=== PATIENT | male | born 1985 | race Caucasian/White ===

== ENCOUNTER 2018-04-24 15:15 | Emergency (ER) | payer SELFPAY ==
[2018-04-24] MEDS ORDERED: CEPHALEXIN 500 MG CAPSULE PO ONE (15:38)
[2018-04-24] MEDS ORDERED: IBUPROFEN 800 MG TABLET PO ONE (15:38)
--- NOTE | 2018-04-24 15:40 | ER Document Report ---
HPI - HPI Patient complains to provider of: Ankle injury Time Seen by Provider: 04/24/18 15:32 Onset: Yesterday Onset/Duration: Sudden Quality of pain: Achy Pain Level: 4 Context: Patient states he was at a trampoline park yesterday and was doing flips and felt a sudden pop in his right ankle. Patient complains of right ankle pain and swelling. Patient also reports having an wound to the right leg from his boots rubbing on his leg. Patient states he has been treating the injury with daily peroxide cleansing and applying triple antibiotic ointment. Patient denies any fever. Associated Symptoms: Other - Right ankle pain, right leg wound. denies: Fever Exacerbated by: Standing, Walking Relieved by: Denies Similar symptoms previously: No Recently seen / treated by doctor: No - ROS ROS below otherwise negative: Yes Systems Reviewed and Negative: Yes All other systems reviewed and negative - CONSTITUTIONAL Constitutional: DENIES: Fever, Chills - EENT EENT: DENIES: Sore Throat - GASTROINTESTINAL Gastrointestinal: DENIES: Abdominal Pain, Nausea, Patient vomiting - MUSCULOSKELETAL Musculoskeletal: REPORTS: Extremity pain - right ankle, Swelling - DERM Skin Color: Ecchymosis Notes: Crusted wound to right leg Past Medical History - General Information source: Patient - Social History Smoking Status: Never Smoker Chew tobacco use (# tins/day): No Smoking Education Provided: Yes Frequency of alcohol use: None Drug Abuse: None Occupation: [employer] Lives with: Family Family History: Reviewed & Not Pertinent Patient has suicidal ideation: No Patient has homicidal ideation: No - Medical History Medical History: Negative Renal/ Medical History: Denies: Hx Peritoneal Dialysis Past Surgical History: Reports: Hx Orthopedic Surgery - hand, elbow from eltrocution - Immunizations Hx Diphtheria, Pertussis, Tetanus Vaccination: Yes Vertical Provider Document - CONSTITUTIONAL Agree With Documented VS: Yes Exam Limitations: No Limitations General Appearance: WD/WN, No Apparent Distress - INFECTION CONTROL TRAVEL OUTSIDE OF THE [place]. IN LAST 30 DAYS: No - HEENT HEENT: Atraumatic, Normocephalic - NECK Neck: Normal Inspection - RESPIRATORY Respiratory: No Respiratory Distress - CARDIOVASCULAR Pulses: Normal: Dorsalis pedis - MUSCULOSKELETAL/EXTREMETIES Musculoskeletal/Extremeties: MAEW, Tender - Tenderness to right ankle bilateral malleolar area with 3+ edema and ecchymosis. Patient with right medial midfoot tenderness - NEURO Level of Consciousness: Awake, Alert, Appropriate Motor/Sensory: No Motor Deficit - DERM Integumentary: Warm, Dry Notes: Patient with scabbed lesion to right lower leg with minimal surrounding erythema. Course - Re-evaluation Re-evalutation: 04/24/18 16:49 Dr. Gil to bedside for consultation. Recommends obtaining CT scan and consulting with orthopedics. Suspects likely discharge home. 04/24/18 18:[address] Larios regarding patient CT report findings. Recommends outpatient follow-up with Dr. Murillo. - Vital Signs Vital signs: Temp Pulse Resp BP Pulse Ox 99.1 F 85 16 156/83 H 100 04/24/18 15:28 04/24/18 15:28 04/24/18 15:28 04/24/18 15:28 04/24/18 15:28 - Diagnostic Test Radiology reviewed: Image reviewed, Reports reviewed Discharge - Discharge Clinical Impression: Fracture, talus closed Qualifiers: Encounter type: initial encounter Talus location: unspecified portion of talus Fracture alignment: displaced Laterality: right Qualified Code(s): S92.101A - Unspecified fracture of right talus, initial encounter for closed fracture Leg wound, right Qualifiers: Encounter type: initial encounter Qualified Code(s): S81.801A - Unspecified open wound, right lower leg, initial encounter Condition: Stable Disposition: HOME, SELF-CARE Instructions: Cephalexin ([facility]), Use of Crutches ([facility]), Fracture ([facility]), Ice & Elevation ([facility]), Oral Narcotic Medication ([facility]), Splint Precautions ([facility]) Additional Instructions: Return immediately for any new or worsening symptoms Followup with Dr. Murillo, call their office tomorrow to make a follow-up appointment Prescriptions: Cephalexin Monohydrate [Keflex 500 mg Capsule] 500 mg PO Q6H 5 Days capsule Hydrocodone/Acetaminophen [[place] 5-325 mg Tablet] 1 tab PO Q6 PRN #15 tablet PRN Reason: Naproxen [Naprosyn 250 Nmg Tablet] 1 tab PO BID #14 tablet Forms: Smoking Cessation Education, Return to Work Referrals: ISIDRO MURILLO MD [ACTIVE STAFF] - Follow up tomorrow
--- NOTE | 2018-04-24 16:53 | RADIOLOGY REPORT (SQ) ---
EXAM DESCRIPTION: ANKLE RIGHT COMPLETE; FOOT RIGHT COMPLETE COMPLETED DATE/TIME: 04/24/2018 4:36 pm REASON FOR STUDY: Injured R ankle on trampoline. Swollen+ Pain+; trampoline park injury COMPARISON: None. NUMBER OF VIEWS: Six views. TECHNIQUE: AP, lateral, and oblique radiographic images acquired of the right foot and right ankle. LIMITATIONS: None. FINDINGS: MINERALIZATION: Normal. BONES: Well corticated calcified density distal to the lateral malleolus stool with remote trauma. N o acute fracture or dislocation. No worrisome bone lesions. JOINTS: Intact. SOFT TISSUES: Diffuse swelling. No foreign body. OTHER: No other significant finding. IMPRESSION: Soft tissue injury. No fracture. TECHNICAL DOCUMENTATION: JOB ID: [id number] [employer]- All Rights Reserved Reading location - IP/workstation name: [email or web address]
--- NOTE | 2018-04-24 16:53 | RADIOLOGY REPORT (SQ) ---
EXAM DESCRIPTION: ANKLE RIGHT COMPLETE; FOOT RIGHT COMPLETE COMPLETED DATE/TIME: 04/24/2018 4:36 pm REASON FOR STUDY: Injured R ankle on trampoline. Swollen+ Pain+; trampoline park injury COMPARISON: None. NUMBER OF VIEWS: Six views. TECHNIQUE: AP, lateral, and oblique radiographic images acquired of the right foot and right ankle. LIMITATIONS: None. FINDINGS: MINERALIZATION: Normal. BONES: Well corticated calcified density distal to the lateral malleolus stool with remote trauma. N o acute fracture or dislocation. No worrisome bone lesions. JOINTS: Intact. SOFT TISSUES: Diffuse swelling. No foreign body. OTHER: No other significant finding. IMPRESSION: Soft tissue injury. No fracture. TECHNICAL DOCUMENTATION: JOB ID: [id number] [employer]- All Rights Reserved Reading location - IP/workstation name: [email or web address]
--- NOTE | 2018-04-24 17:47 | RADIOLOGY REPORT (SQ) ---
EXAM DESCRIPTION: CT RT LOWER EXTREMITY WITHOUT COMPLETED DATE/TIME: 04/24/2018 5:25 pm REASON FOR STUDY: eval talus fracture COMPARISON: None. TECHNIQUE: Axial imaging performed through the right ankle with reformatted coronal and sagittal eyal ging windowed for bone and soft tissues. Images saved to PACS. 3D IMAGING: Were 3D images as MIP, SSD, or volume rendering performed at the work station? No All CT scanners at this facility use dose modulation, iterative reconstruction, and/or weight based d osing when appropriate to reduce radiation dose to as low as reasonably achievable (ALARA). [facility]: Dose Right [facility]: CareDose [facility]: Dose Right [facility]: Teradose 4D [facility]: [employer] LIMITATIONS: None. RADIATION DOSE: CT Rad equipment meets quality standard of care and radiation dose reduction techniq ues were employed. CTDIvol: 4.1 mGy. DLP: 98 mGy-cm. mGy. FINDINGS: SOFT TISSUES: Subcutaneous edema is present. BONES: There is a limited fracture of the lateral process of the talus. This partially involves the posterior facet. MINERALIZATION: Normal. OTHER: No other significant finding. IMPRESSION: Fracture of the lateral process of the talus. 3D images can be created for viewing. TECHNICAL DOCUMENTATION: JOB ID: [id number] Quality ID # [id number]: Final reports with documentation of one or more dose reduction techniques (e.g., Au tomated exposure control, adjustment of the mA and/or kV according to patient size, use of iterative reconstruction technique) 2010 [employer]- All Rights Reserved Reading location - IP/workstation name: [email or web address]
[2018-04-24 18:00] VITALS: BP 153/95
== END 2018-04-24 18:43 | disposition home or self-care (01) ==
LOC: ER 15:15
DX: S92.101A Unspecified fracture of right talus, initial encounter for closed fracture (principal); S81.801A Unspecified open wound, right lower leg, initial encounter; X58.XXXA Exposure to other specified factors, initial encounter; Y92.009 Unspecified place in unspecified non-institutional (private) residence as the place of occurrence of the external cause
CPT/HCPCS: 99284

== ENCOUNTER 2019-11-14 13:24 | Emergency (ER) | payer SELFPAY ==
[2019-11-14 15:10] LABS: APPEARANCE,URINE SLIGHTLY-CLOUDY; BILIRUBIN,URINE NEGATIVE (NEGATIVE); COLOR,URINE AMBER; GLUCOSE, URINE NEGATIVE (NEGATIVE); KETONES,URINE TRACE mg/dL (NEGATIVE); LEUKOCYTE ESTERASE,URINE NEGATIVE (NEGATIVE); NITRITE,URINE NEGATIVE (NEGATIVE); PROTEIN,URINE 100 mg/dL (NEGATIVE); URINE SPECIFIC GRAVITY 1.027
--- NOTE | 2019-11-14 15:19 | ER Document Report ---
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 He was discharged from [facility] approximately a month and a half ago and had 2 drains placed. He had a follow-up approximately 4 weeks ago with his provider Dr. Melchor who removed 1 of the tubes. He has an appointment next Tuesday with Dr. Melchor in regards to removing the second tube. Patient notes this morning the tube was very loose and that the suture had popped and that his drain is no longer actively draining. Typically has drainage of approximately 50 mL's a day that is of a yellowish discharge. He has left-sided pain. No fevers chills or additional symptoms reported. Physical exam: No acute distress. Drain left lateral abdominal wall. Mild surrounding erythema. Area is tender. Mild yellowish discharge. I have greeted and performed a rapid initial assessment of this patient. A comprehesive ED assessment and evaluation of this patient, analysis of test results and completion of the medical decision-making process will be conducted by additional ED providers. TRAVEL OUTSIDE OF THE [place].S[place] IN LAST 30 DAYS: No - Related Data Allergies/Adverse Reactions: sulfamethoxazole [From ] Allergy (Verified 11/14/19 15:01) trimethoprim [From Octra] Allergy (Verified 11/14/19 15:01) Home Medications: creon Past Medical History - Social History Chew tobacco use (# tins/day): No Frequency of alcohol use: None Drug Abuse: None Renal/ Medical History: Denies: Hx Peritoneal Dialysis Psychiatric Medical History: Denies: Hx Depression Past Surgical History: Reports: Hx Orthopedic Surgery - hand, elbow from eltrocution - Immunizations Hx Diphtheria, Pertussis, Tetanus Vaccination: Yes Physical Exam - Vital signs Vitals: Temp Pulse Resp BP Pulse Ox 99.3 F 126 H 17 101/59 L 98 11/14/19 13:41 11/14/19 13:41 11/14/19 13:41 11/14/19 13:41 11/14/19 13:41 Course - Re-evaluation Re-evalutation: 11/14/19 16:[address] Melchor at [place]. He recommends a CT to evaluate for the necrosis and a call back after this is performed to give additional recommendations. I have ordered the CT scan. Patient is pending a room in the main ER. - Vital Signs Vital signs: Temp Pulse Resp BP Pulse Ox 99.3 F 118 H 16 119/70 100 11/14/19 13:41 11/14/19 15:46 11/14/19 15:46 11/14/19 15:46 11/14/19 15:46 - Laboratory Laboratory results interpreted by me: 11/14/19 14:30 Urine Protein 100 H Urine Ketones TRACE H Urine Urobilinogen 2.0 H Urine Ascorbic Acid 20 H
[2019-11-14 16:33] LABS: CHLAM PCR NOT DETECTED (NOT DETECT)
[2019-11-14 19:01] LABS: ABSOLUTE BASOPHILS # (AUTO) 0.1 10^3/uL (0.0-0.2); ABSOLUTE MONOCYTES (AUTO) 2.1 10^3/uL (0.1-1.4); ABSOLUTE NEUT (AUTO) 15.5 10^3/uL (1.7-8.2); BASOPHILS % (AUTO) 0.7 % (0-2); EOSINOPHILS % (AUTO) 0.1 % (0-6); HEMATOCRIT 31.7 % (37.9-51.0); HEMOGLOBIN 11.1 g/dL (13.5-17.0); MEAN CORPUSCULAR HEMOGLOBIN 31.7 pg (27.0-33.4); MEAN CORPUSCULAR VOLUME 91 fl (80-97); MONOCYTES % (AUTO) 10.7 % (3-13); PLATELET COUNT 445 10^3/uL (150-450); RED BLOOD COUNT 3.49 10^6/uL (4.35-5.55); RED CELL DISTRIBUTION WIDTH 15.2 % (11.5-14.0); SEGMENTED NEUTROPHILS % (AUTO) 78.5 % (42-78); TOTAL CELLS COUNTED % (AUTO) 100 %; WHITE BLOOD COUNT 19.7 10^3/uL (4.0-10.5)
[2019-11-14 19:11] LABS: ALBUMIN 4.1 g/dL (3.5-5.0); ALKALINE PHOSPHATASE 116 U/L (38-126); ANION GAP 14 (5-19); ASPARTATE AMINO TRANSFERASE 29 U/L (17-59); BILIRUBIN,DIRECT 0.4 mg/dL (0.0-0.4); BILIRUBIN,TOTAL 0.9 mg/dL (0.2-1.3); BLOOD UREA NITROGEN 9 mg/dL (7-20); CALCIUM 9.8 mg/dL (8.4-10.2); CARBON DIOXIDE 25 mmol/L (22-30); CHLORIDE 91 mmol/L (98-107); GLUCOSE 166 mg/dL (75-110); POTASSIUM 4.8 mmol/L (3.6-5.0); TOTAL PROTEIN 8.6 g/dL (6.3-8.2)
--- NOTE | 2019-11-14 19:13 | RADIOLOGY REPORT (SQ) ---
EXAM DESCRIPTION: CT ABD/PELVIS WITH IV ONLY IMAGES COMPLETED DATE/TIME: 11/14/2019 6:55 pm REASON FOR STUDY: follow up pancreatitis COMPARISON: 09/18/2019 TECHNIQUE: CT scan of the abdomen and pelvis performed using helical scanning technique with dynamic intravenous contrast injection. No oral contrast. Images reviewed with lung, soft tissue, and bone windows. Reconstructed coronal and sagittal MPR images reviewed. Delayed images for evaluation of the urinary system also acquired. All images stored on PACS. All CT scanners at this facility use dose modulation, iterative reconstruction, and/or weight based d osing when appropriate to reduce radiation dose to as low as reasonably achievable (ALARA). [facility]: Dose Right [facility]: CareDose [facility]: Dose Right [facility]: Teradose 4D [facility]: [employer] CONTRAST TYPE AND DOSE: contrast/concentration: Isovue 350.00 mmol/ml; Total Contrast Delivered: 75. 0 ml; Total Saline Delivered: 56.0 ml RENAL FUNCTION: None required. The patient is less than 50 years old. RADIATION DOSE: CT Rad equipment meets quality standard of care and radiation dose reduction techniq ues were employed. CTDIvol: 6.4 - 8.7 mGy. DLP: 810 mGy-cm.. LIMITATIONS: None. FINDINGS: LOWER CHEST: No significant findings. No nodules or infiltrates. LIVER: Normal size. No masses. No dilated ducts. SPLEEN: Normal size. No focal lesions. PANCREAS: Gas fluid collections within enlarged gland with adjacent inflammatory changes. Fluid salvatore ection measures approximately 2.8 x 8 cm AP by transverse diameter. There is a percutaneous drain ne ar the tail. No pseudoaneurysm. GALLBLADDER: Gallstones. No inflammatory changes to suggest cholecystitis. ADRENAL GLANDS: No significant masses or asymmetry. RIGHT KIDNEY AND URETER: No solid masses. No significant calcifications. No hydronephrosis or hyd roureter. LEFT KIDNEY AND URETER: No solid masses. No significant calcifications. No hydronephrosis or hydr oureter. AORTA AND VESSELS: No aneurysm. No dissection. Renal arteries, SMA, celiac without stenosis. RETROPERITONEUM: No retroperitoneal adenopathy, hemorrhage or masses. BOWEL AND PERITONEAL CAVITY: Small amount of fluid and inflammatory changes in the left pericolic gut ter. No dilated bowel loops. APPENDIX: Not visualized. PELVIS: No mass. No free fluid. Normal bladder. ABDOMINAL WALL: No masses. No hernias. BONES: No significant or acute findings. OTHER: No other significant finding. IMPRESSION: 1. Pancreatitis with necrosis status post percutaneous drain placement. 2. Cholelithiasis. TECHNICAL DOCUMENTATION: JOB ID: [id number] Quality ID # [id number]: Final reports with documentation of one or more dose reduction techniques (e.g., Au tomated exposure control, adjustment of the mA and/or kV according to patient size, use of iterative reconstruction technique) 2010 [employer]- All Rights Reserved Reading location - IP/workstation name: [email or web address]
[2019-11-14] MEDS ORDERED: ONDANSETRON HCL INJ/PF 4 MG/2 ML SDV IV ONE (20:34)
[2019-11-14] MEDS ORDERED: MORPHINE SULFATE 10 MG/ML INJ IV ONE ×2 (20:34→23:52)
[2019-11-14] MEDS ORDERED: NORMAL SALINE 1000 ML 1,000 ML IV ONE (20:35)
--- NOTE | 2019-11-14 20:37 | ER Document Report ---
ED GI/ - General Chief Complaint: Other Stated Complaint: DRAIN TUBE COMING OUT Time Seen by Provider: 11/14/19 20:22 Notes: Patient is a 34-year-old male that comes emergency department for chief complaint of concerns about a drain for his pancreas being moved/dislodged. Patient has a history of alcoholic pancreatitis, he states he was hospitalized at [facility] where he had 2 drains placed for the pancreas with IMNDI drains attached, he states that about 6 weeks ago he was discharged with the drains. He states about 4 weeks ago he had [address] Melchor, he has an appointment this coming Tuesday with Dr. Melchor for the second drain to be removed. Patient states that this morning he noticed that the tube was loose, 1 of the sutures had popped, and is draining was draining from around the insertion site in the skin and minimally draining into the MINDI drain portion. He states that normally he gets about 50 mL's a day of yellowish drainage, he is only had less than 20 mL's drained today. He does report left-sided abdominal pain especially with movement he vomited once last night, he denies fevers, he denies any other complaints. TRAVEL OUTSIDE OF THE [place] IN LAST 30 DAYS: No - Related Data Allergies/Adverse Reactions: sulfamethoxazole [From ] Allergy (Verified 11/14/19 22:33) trimethoprim [From Octra] Allergy (Verified 11/14/19 22:33) Home Medications: creon Past Medical History - General Information source: Patient - Social History Smoking Status: Current Every Day Smoker Chew tobacco use (# tins/day): No Frequency of alcohol use: Heavy Drug Abuse: None Lives with: Spouse/Significant other Family History: Reviewed & Not Pertinent Patient has homicidal ideation: No Renal/ Medical History: Denies: Hx Peritoneal Dialysis GI Medical History: Reports: Hx Pancreatitis - Alcoholic, necrotizing Psychiatric Medical History: Denies: Hx Depression Past Surgical History: Reports: Hx Orthopedic Surgery - hand, elbow from eltrocution, Other - Abdominal drains for necrotizing pancreatitis - Immunizations Hx Diphtheria, Pertussis, Tetanus Vaccination: Yes Review of Systems - Review of Systems Constitutional: No symptoms reported EENT: No symptoms reported Cardiovascular: No symptoms reported Respiratory: No symptoms reported Gastrointestinal: See HPI Genitourinary: No symptoms reported Male Genitourinary: No symptoms reported Musculoskeletal: No symptoms reported Skin: No symptoms reported Hematologic/Lymphatic: No symptoms reported Neurological/Psychological: No symptoms reported Physical Exam - Vital signs Vitals: Temp Pulse Resp BP Pulse Ox 99.3 F 126 H 17 101/59 L 98 11/14/19 13:41 11/14/19 13:41 11/14/19 13:41 11/14/19 13:41 11/14/19 13:41 - Notes Notes: GENERAL: Patient is alert and interactive, he appears mildly uncomfortable especially with movement but he is not in severe distress HEAD: Normocephalic, atraumatic. EYES: Pupils equal, round, and reactive to light. Extraocular movements intact. ENT: Oral mucosa dry, tongue midline. Oropharynx unremarkable. Airway patent. LUNGS: Clear to auscultation bilaterally, no wheezes, rales, or rhonchi. No respiratory distress. Non-tender chest wall. HEART: Regular rate and rhythm. No murmur ABDOMEN: There is tenderness over the mid upper and left upper abdomen, lower abdomen unremarkable. There is a drain in place in the left lateral abdomen, there is some purulent drainage coming from around the drain site, there is a small amount of discolored drainage in the MINDI drain. Otherwise unremarkable. EXTREMITIES: Moves all 4 extremities spontaneously. No edema, normal radial and dorsalis pedis pulses bilaterally. No cyanosis. BACK: no cervical, thoracic, lumbar midline tenderness. No saddle anesthesia, normal distal neurovascular exam. Moves all extremities in full range of motion. NEUROLOGICAL: Alert and oriented x3. Normal speech. Cranial nerves II through XII grossly intact. Strength 5/5 in all extremities. PSYCH: Normal affect, normal mood. SKIN: Warm, dry, normal turgor. No rashes or lesions noted. Course - Re-evaluation Re-evalutation: On my evaluation patient is tachycardic but he is not toxic in appearance. He does have generalized tenderness in the mid and especially left upper abdomen, remaining abdomen is unremarkable. The drain in the left lateral abdomen does have some purulent drainage coming out from the drain insertion site and also a small amount of discolored drainage in the MINDI drain. There is no overt cellulitis or other abnormality noted. Patient is not febrile. CBC shows leukocytosis at greater than 19,000, elevation of neutrophils, no bandemia. Sodium is 129.7, probably chronic because of his history of alcoholism. Chemistry nonspecific otherwise. Lipase is unremarkable. CT of the abdomen/pelvis was performed and will be sent to Dr. Melchor, apparently triage provider already spoken to him and he requested we will power share this. CT does show evidence of necrotizing pancreatitis with a drain in place near the tail. Patient given IV fluids, pain and nausea medication. 11/14/19 21:15 I called and spoke with Dr. Melchor at [facility], he reviewed the image, he states there is concern for developing new fluid collection that may need drainage, he recommends meropenem be initiated and patient be transferred to their service. I discussed with patient and significant other, they state appreciation and agreement. Dr. Payton has been updated on the patient. [facility] call back, patient will be transferred ED to ED. 11/14/19 23:51 Transport team is here, patient has been reevaluated again at bedside. Heart rate is significantly improved at 105 after IV fluids, antibiotics infused, patient without complaints on my evaluation, patient is stable for transport. - Vital Signs Vital signs: Temp Pulse Resp BP Pulse Ox 99.9 F 118 H 20 109/59 L 98 11/14/19 23:44 11/14/19 15:46 11/14/19 23:45 11/14/19 23:45 11/14/19 23:45 - Laboratory Result Diagrams: 11/14/19 18:42 11/14/19 18:42 Laboratory results interpreted by me: 11/14/19 11/14/19 11/14/19 14:30 18:42 18:42 WBC 19.7 H RBC 3.49 L Hgb 11.1 L Hct 31.7 L RDW 15.2 H Lymph % (Auto) 10.0 L Absolute Neuts (auto) 15.5 H Absolute Monos (auto) 2.1 H Seg Neutrophils % 78.5 H Sodium 129.7 L Chloride 91 L Glucose 166 H Total Protein 8.6 H Urine Protein 100 H Urine Ketones TRACE H Urine Urobilinogen 2.0 H Urine Ascorbic Acid 20 H Discharge - Discharge Clinical Impression: Pancreatitis, necrotizing Condition: Stable Disposition: [facility]
[2019-11-14] MEDS ORDERED: MEROPENEM 1 GM VIAL IV ONE (21:13)
[2019-11-14 23:50] VITALS: BP 109/59
== END 2019-11-15 00:07 | disposition short-term general hospital (02) ==
LOC: ER 13:24
DX: K85.91 Acute pancreatitis with uninfected necrosis, unspecified (principal); K80.20 Calculus of gallbladder without cholecystitis without obstruction; R00.0 Tachycardia, unspecified; F10.20 Alcohol dependence, uncomplicated; F17.200 Nicotine dependence, unspecified, uncomplicated; Z98.890 Other specified postprocedural states; Z79.899 Other long term (current) drug therapy; Z88.1 Allergy status to other antibiotic agents
CPT/HCPCS: 96376; 99285; 96361; 96375; 96365; 36415; 83690; 85025; 80053; 81001; 87491; 87591; 74177; J2270 ×2; J2405; J7030; J2185